=== PATIENT | male | born 1950 | race Asian ===

== ENCOUNTER 2024-04-10 10:51 | Emergency (ER) | payer OTHER, SELFPAY ==
[2024-04-10 10:58] VITALS: BP 135/91
--- NOTE | 2024-04-10 12:08 | ED.MUSCINJ ---
HPI-Injury
General
Chief Complaint: Musculo-Skeletal Complaint
Source: patient
Time Seen by Provider: 04/10/24 11:55
History of Present Illness-Injury
Initial Injury comments:
73yoM with a history of hypertension, hyperlipidemia, and CAD presenting for left great toe pain x 3 days. He dropped a heavy object on his foot 3 days ago and has been having pain and swelling since then. He was seen at urgent care 2 days ago and
had x-rays done. He was diagnosed with a toe fracture, placed in a leg boot, and advised to f/u with orthopedics. He has been unable to follow up with his PCP or orthopedics due to the holiday. He presents with uncontrolled pain despite using
Tylenol and ibuprofen. He also is worried that he may have an infection as he popped a blister on the toe and purulent fluid was expressed. He denies any fevers or chills. No history of diabetes.
Phy Exam
Physical Exam
Physical Exam:
Left great toe: Ecchymosis noted throughout digit with edema. Small area of open skin noted on the dorsal aspect of the toe in the area where he popped a blister. No drainage, fluctuance, or crepitus noted. No subungual hematoma. ROM intact. Cap
refill and sensation intact at distal aspect of digit. 2+ DP pulse.
General Physical Exam
General Presentation: well appearing and no apparent distress
General Skin: warm and dry
General Habitus: normal
General Mental: alert
Injury Course
Orders/Labs/Results
Orders:
Orders
04/10/24 12:08
Ice Pack-Treatment DIRECTED
Location: L great toe
Chandler Tape Left-Treatment ONCE
Comment: L great toe
Oxycodone [Roxicodone] 5 mg PO NOW STA
MDM/Problems Addressed
Differential Diagnosis Includes:
73yoM here with L great toe pain x 3 days. He was previously diagnosed with a toe fracture at urgent care. He is presenting for uncontrolled pain despite using OTC medications. No f/c. He is afebrile and hemodynamically stable. He is well appearing
in no distress. There is ecchymosis and swelling on exam. No signs of infection present. Digit is neurovascularly intact.
No indication for repeat imaging at this time. Will start on Keflex given report of purulent drainage. Script for oxycodone given for breakthrough pain. Advised ice, elevation, and chandler taping. Advised f/u with orthopedics or podiatry.
*Critical Care Note
Total Time (30-74mins, 75-104mins- exclusive of procedures): Not Applicable
ED Attending Note
-
Portions of this chart may have been created with voice recognition software.� Occasional wrong word or��sound alike� substitutions may have occurred due to the inherent limitations of voice recognition software.
Discharge Plan
Departure
Patient Disposition: Home (Routine Discharge)
Date of Disposition: 04/10/24
Time of Disposition: 12:10
Patient with high blood pressure during this ER visit?: No
Discharge Problem:
Closed fracture of left great toe
Instructions: Toe fracture
Prescriptions:
New
oxycodone 5 mg tablet
5 mg PO Q6H PRN (Reason: Pain) Qty: 12 0RF
cephalexin 500 mg capsule
500 mg PO QID Qty: 28 0RF
Referrals:
Kevin Cuevas MD [Family Provider] -
Jennie Moreno DPM [Active] -
Activity Restrictions/Additional Instructions:
Apply ice to affected area and elevate your leg. Take Tylenol and ibuprofen for pain. Take oxycodone only as needed for severe breakthrough pain.
Please call on Friday to schedule a follow-up appointment with orthopedics or podiatry.
Interventions
Interventions:
*Risk Screen - Suicide Last Done: 04/10/24 11:06
*General Assessment Last Done: 04/10/24 11:06
*Neglect/Abuse Screening Last Done: 04/10/24 11:06
ED- Fall Risk Assessment Last Done: 04/10/24 11:06
*ED COVID-19 Vaccine History Last Done: 04/10/24 11:06
*Nursing Disposition Last Done: 04/10/24 12:50
ED-Musculoskeletal Assessment Last Done: 04/10/24 11:06
Discharge Date and Time
Discharge Date/Time: 04/10/24 12:51
Print Language: CAMEROONIAN
[2024-04-10] MEDS: ROXICODONE 5 MG PO (12:22)
== END 2024-04-10 12:51 | disposition home or self-care (01) ==
LOC: EMR 10:51
PROVIDERS: EMERGENCY PHYSICIAN Student in an Organized Health Care Education/Training Program; FAMILY PHYSICIAN Internal Medicine
DX: S92.402A Displaced unspecified fracture of left great toe, initial encounter for closed fracture (principal); W20.8XXA Other cause of strike by thrown, projected or falling object, initial encounter; I10 Essential (primary) hypertension; E78.5 Hyperlipidemia, unspecified; I25.10 Atherosclerotic heart disease of native coronary artery without angina pectoris
CPT/HCPCS: 99283

== ENCOUNTER 2024-04-20 00:46 | Emergency (ER) | payer OTHER, SELFPAY ==
[2024-04-20 00:47] VITALS: BP 144/75
[2024-04-20 01:00] VITALS: BP 132/76
[2024-04-20 01:02] LABS: % Basophils 0.1 % (0-2); % Eosinophils 0.1 % (0-6); % Immature Granulocytes 0.6 % (0-0.5); % Lymphocytes 4.5 % (20.5-51.1); % Monocytes 6.7 % (1.7-9.3); Absolute Lymphocytes 0.3 10^3/uL (1.2-3.4); Absolute Monocytes 0.5 10^3/uL (0.1-0.6); Absolute Neutrophils 5.9 10^3/uL (1.4-6.5); Hematocrit 38.4 % (39.0-52.0); Hemoglobin 13.8 g/dL (13.0-18.0); Mean Corp Hgb Conc. 35.9 g/dL (33.0-37.0); Mean Corpuscular Hgb 30.7 pg (27.0-31.0); Mean Corpuscular Volume 85.3 fL (80.0-94.0); Mean Platelet Volume 8.9 fL (7.4-10.4); Nucleated Red Blood Cells % 0 % (-); Platelet Count 154 10^3/uL (130-400); Red Cell Dist. Width 11.9 % (11.5-14.5); White Blood Cell Count 6.7 10^3/uL (4.8-10.8)
[2024-04-20 01:16] LABS: ALT (SGPT) 28 U/L (0-50); AST (SGOT) 28 U/L (17-59); Albumin 4.3 g/dl (3.5-5.0); Alkaline Phosphatase 55 U/L (38-126); Blood Urea Nitrogen 21 mg/dl (9-20); Calcium 8.7 mg/dl (8.4-10.2); Carbon Dioxide 27 mmol/L (22-30); Chloride 100 mmol/L (98-107); Glucose 141 mg/dl (70-99); Lactic Acid 1.6 mmol/L (0.7-2.0); Potassium 3.8 mmol/L (3.5-5.1); Sodium 134 mmol/L (135-145); Total Bilirubin 0.6 mg/dl (0.2-1.3); Total Protein 6.3 g/dl (6.3-8.2); eGFR > 60.00
[2024-04-20 02:00] VITALS: BP 109/55
--- NOTE | 2024-04-20 02:39 | ED.GENMED ---
History of Present Illness
<Nelsy Vincent DO, Resident - Last Filed: 04/20/24 05:52>
General
Chief Complaint: Fever
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
Time Seen by Provider: 04/20/24 02:18
History of Present Illness
History of Present Illness:
Patient is a 73-year-old Telugu speaking male with past medical history of high cholesterol and CAD presenting to the ED with fevers, chills, diarrhea, lower abdominal pain/burning sensation. He recently had foot surgery for broken toes. His
primary care doctor noticed that he was using fluids from the surgical site and the wound was drained. Patient is currently on Keflex and started experiencing GI upset last week. It was exacerbated on Friday after eating questionably spoiled fish
for dinner. Symptoms have not improved since. He describes the sensation as a burning lower abdominal discomfort that causes diarrhea. Since this weekend he also started experiencing fatigue, weakness, chills, fever and worsening abdominal pain.
He took Tylenol yesterday at 2 PM, 6 PM, 11 PM and Advil as well at 11 PM.The pain did not resolve so he called 911 to come to the ED. He continues to state that he is having a burning discomfort in his lower abdomen.
Past History
<Nelsy Vincent DO, Resident - Last Filed: 04/20/24 05:52>
Past History
ED Past Medical History: CAD and Hypercholesterolemia
Social History
Tobacco: Non-smoker
Alcohol: None
Drug: None
Personal:
Review of Systems
<Nelsy Vincent DO, Resident - Last Filed: 04/20/24 05:52>
Review of Systems
Allergies reviewed?: Yes
Constitutional: Reports fever, fatigue and chills
EENT: Reports no symptoms
Respiratory: Reports no symptoms
Cardiac: Reports no symptoms
ABD/GI: Reports abdominal pain and diarrhea
: Reports no symptoms
Musculoskeletal: Reports other (foot pain)
Skin: Reports no symptoms
Neurological: Reports weakness
Psychiatric: Reports no symptoms
<Mikal Leiva DO - Last Filed: 04/20/24 05:49>
Review of Systems
All Other Systems: ROS reviewed and negative except as documented in HPI and ROS
Phy Exam
<Nelsy Vincent DO, Resident - Last Filed: 04/20/24 05:52>
General Physical Exam
General Presentation: well appearing and mild distress
General age: appears stated age
General Skin: warm, dry and other (sweaty)
General Habitus: normal
General Mental: alert
General Hydration: appears well hydrated
Cardiovascular Exam
Cardiovascular Exam: regular rate/rhythm, no edema, no gallop, no JVD, no murmur and normal peripheral pulses
Pulmonary Exam
Pulmonary Exam: lungs clear, no respiratory distress, no rales, chest non tender, no crackles, no rhonchi, no stridor, no wheezing and no cough
Gastrointestinal Exam
Gastrointestinal Exam: soft, no pulsatile mass, non distended and tender (RUQ)
Psychiatric Exam
Psychiatric Exam: normal mood/affect
Course
<Nelsy Vincent DO, Resident - Last Filed: 04/20/24 05:52>
Orders/Labs/Results
Orders:
Orders
04/20/24 00:55
Complete Blood Count/With Diff Urgent
Comprehensive Metabolic Panel Urgent
Lactic Acid Urgent
04/20/24 02:56
CR Foot - Left Min 3 Views Urgent
Reason For Exam: recent foot surgery, fluid draining
04/20/24 02:59
Urinalysis Urgent
04/20/24 03:25
Lipase Urgent
Procalcitonin Urgent
PCT Algorithmm Indication: Sepsis
04/20/24 03:56
CT Abd/pelvis W Iv Cont Urgent
Comment:
Reason For Exam: abdominal pain
04/20/24 05:21
COVID-19 Antigen Urgent
Source: Nasal Swab
Influenza A+B Rapid Molecular Urgent
ABDULAZIZ Source: Nasal Swab
Specimen Description:
Abnormal Lab Results
04/20/24
00:55
RBC 4.50 L 10^6/uL
(4.70-6.10)
Hct 38.4 L %
(39.0-52.0)
Absolute Lymphs (auto) 0.3 L 10^3/uL
(1.2-3.4)
Immature Gran % 0.6 H %
(0-0.5)
Neutrophils % 88.0 H %
(42.2-75.2)
Lymphocytes % 4.5 L %
(20.5-51.1)
Sodium 134 L mmol/L
(135-145)
BUN 21 H mg/dl
(9-20)
Glucose 141 H mg/dl
(70-99)
04/20/24 00:55
04/20/24 00:55
Vital Signs
Initial and Last Documented VS:
Initial Vital Signs
Temp Pulse Resp BP Pulse Ox
100.4 F H 96 17 144/75 92
04/20/24 00:47 04/20/24 00:47 04/20/24 00:47 04/20/24 00:47 04/20/24 00:47
Last Documented Vital Signs
Temp Pulse Resp BP Pulse Ox
98.7 F 77 20 109/55 95
04/20/24 03:32 04/20/24 02:15 04/20/24 02:15 04/20/24 02:00 04/20/24 02:15
<Mikal Leiva, DO - Last Filed: 04/20/24 05:49>
Orders/Labs/Results
Orders:
Orders
04/20/24 00:55
Complete Blood Count/With Diff Urgent
Comprehensive Metabolic Panel Urgent
Lactic Acid Urgent
04/20/24 02:56
CR Foot - Left Min 3 Views Urgent
Reason For Exam: recent foot surgery, fluid draining
04/20/24 02:59
Urinalysis Urgent
04/20/24 03:25
Lipase Urgent
Procalcitonin Urgent
PCT Algorithmm Indication: Sepsis
04/20/24 03:56
CT Abd/pelvis W Iv Cont Urgent
Comment:
Reason For Exam: abdominal pain
04/20/24 05:21
COVID-19 Antigen Urgent
Source: Nasal Swab
Influenza A+B Rapid Molecular Urgent
ABDULAZIZ Source: Nasal Swab
Specimen Description:
Abnormal Lab Results
04/20/24
00:55
RBC 4.50 L 10^6/uL
(4.70-6.10)
Hct 38.4 L %
(39.0-52.0)
Absolute Lymphs (auto) 0.3 L 10^3/uL
(1.2-3.4)
Immature Gran % 0.6 H %
(0-0.5)
Neutrophils % 88.0 H %
(42.2-75.2)
Lymphocytes % 4.5 L %
(20.5-51.1)
Sodium 134 L mmol/L
(135-145)
BUN 21 H mg/dl
(9-20)
Glucose 141 H mg/dl
(70-99)
04/20/24 00:55
04/20/24 00:55
Vital Signs
Initial and Last Documented VS:
Initial Vital Signs
Temp Pulse Resp BP Pulse Ox
100.4 F H 96 17 144/75 92
04/20/24 00:47 04/20/24 00:47 04/20/24 00:47 04/20/24 00:47 04/20/24 00:47
Last Documented Vital Signs
Temp Pulse Resp BP Pulse Ox
98.7 F 77 20 109/55 95
04/20/24 03:32 04/20/24 02:15 04/20/24 02:15 04/20/24 02:00 04/20/24 02:15
<Nelsy Vincent DO, Resident - Last Filed: 04/20/24 05:52>
MDM/Problems Addressed
Differential Diagnosis Includes:
Sepsis, foot infection, gastroenteritis
MDM/Problems Addressed:
Patient is a 73-year-old male presenting to the ED with fever, chills, pain, diarrhea and weakness for the last few days. CT abdomen pelvis and left foot x-ray ordered. CT AP and CR negative. Pt is no longer febrile. Lab work normal. Pt is stable,
resting comfortably and wants to return home. Pt will be discharged home with script for Gilbert.
Chronic conditions affecting care:
NA
Acute Exacerbation and/or Progression of Chronic Illness:
NA
<Nelsy Vincent DO, Resident - Last Filed: 04/20/24 05:52>
*Radiology
Radiology exam reviewed: preliminary read by ED provider (CT and XRay negative.)
*Pulse Oximetry
Patient hypoxic: no
*EKG
Interpreted by ED Provider?: NA
*Final Dressing Cutter Interpretation
Rate: normal
Interpretation: normal
Heart Rate: 77
Rhythm: sinus
*Critical Care Note
Total Time (30-74mins, 75-104mins- exclusive of procedures): Not Applicable
ED Attending Note
<Nelsy Vincent DO, Resident - Last Filed: 04/20/24 05:52>
-
Portions of this chart may have been created with voice recognition software.� Occasional wrong word or��sound alike� substitutions may have occurred due to the inherent limitations of voice recognition software.
Discharge Plan
Departure
Patient Disposition: Home (Routine Discharge)
Date of Disposition: 04/20/24
Time of Disposition: 05:50
Patient with high blood pressure during this ER visit?: No
Condition: Good
Discharge Problem:
Gastroenteritis
Instructions: Viral gastroenteritis in adults, Dealing with Diarrhea from the Drugs You Take
Prescriptions:
New
ondansetron 4 mg tablet,disintegrating
4 mg PO Q8H PRN (Reason: nausea and vomiting) Qty: 10 0RF
No Action
oxycodone 5 mg tablet
5 mg PO Q6H PRN (Reason: Pain) Qty: 12 0RF
cephalexin 500 mg capsule
500 mg PO QID Qty: 28 0RF
acetaminophen [Tylenol Ex Str Rapid Release] 500 mg Tablet
1,000 mg PO Q6H PRN (Reason: pain)
Referrals:
Kevin Cuevas MD [Family Provider] - Call in 1-3 days for appt
Interventions
Interventions:
*Risk Screen - Suicide Last Done: 04/20/24 00:47
ED- Neurological Assessment Last Done: 04/20/24 01:00
ED-Skin Assessment Last Done: 04/20/24 01:00
Discharge Date and Time
Print Language: SETSWANA
[2024-04-20 04:00] VITALS: BP 116/69
[2024-04-20 04:01] LABS: Lipase 64 U/L (23-300)
[2024-04-20 04:16] LABS: Procalcitonin 0.08 ng/ml (0.0-0.25)
[2024-04-20 05:09] VITALS: BP 106/72
[2024-04-20 05:59] LABS: COVID-19 Antigen Negative (Negative)
[2024-04-20 06:00] VITALS: BP 94/56
== END 2024-04-20 06:05 | disposition home or self-care (01) ==
LOC: EMR 00:46
PROVIDERS: EMERGENCY PHYSICIAN Student in an Organized Health Care Education/Training Program; FAMILY PHYSICIAN Internal Medicine
DX: R19.7 Diarrhea, unspecified (principal); K30 Functional dyspepsia; R10.30 Lower abdominal pain, unspecified; R68.83 Chills (without fever); R53.1 Weakness; R53.83 Other fatigue; Z11.52 Encounter for screening for COVID-19; K52.9 Noninfective gastroenteritis and colitis, unspecified; E78.00 Pure hypercholesterolemia, unspecified; I25.10 Atherosclerotic heart disease of native coronary artery without angina pectoris; Z98.890 Other specified postprocedural states
CPT/HCPCS: 99285; 73630; 74177; 80053; 83605; 83690; 84145; 85025; 87502; 87811; Q9967

== ENCOUNTER 2024-05-09 20:17 | Emergency (ER) | payer OTHER, SELFPAY ==
[2024-05-09 20:19] VITALS: BP 138/92
--- NOTE | 2024-05-09 20:36 | ED.GENMED ---
History of Present Illness
General
Chief Complaint: Insect Sting
Source: patient
Exam Limitations: none
Time Seen by Provider: 05/09/24 20:33
Nursing documentation reviewed up to this point in time: agreed with
History of Present Illness
History of Present Illness:
73-year-old male past medical history hypertension hyperlipidemia presenting to the emergency department today with concerns of discomfort to the left ear after being stung by a bee prior to arrival. No trouble swallowing no trouble breathing no
lightheadedness no abdominal pain no nausea vomiting no significant diffuse hives.
Past History
Past History
ED Past Medical History: CAD and Hypercholesterolemia
Social History
Tobacco: Non-smoker
Alcohol: None
Drug: None
Personal:
Review of Systems
Review of Systems
Allergies reviewed?: Yes
All Other Systems: ROS reviewed and negative except as documented in HPI and ROS
Phy Exam
Physical Exam
Physical Exam:
GENERAL: Alert , in no apparent distress
EYE: pupils equal and reactive
NECK: Supple, no significant adenopathy.
ENT: No redness or warmth o/p clr, mmm.
CARDIAC: Regular rate and rhythm .
LUNGS: Clear breath sounds bilaterally, no acute respiratory distress, no wheezes/rales/rhonchi
ABDOMEN: Soft, without focal tenderness, no r/g, no cvat
NEUROLOGICAL: Alert and oriented, no focal neuro deficits
SKIN: Warm and dry, skin intact.
MUSCULOSKELETAL: No edema, well perfused.
PSYCH: Normal and appropriate interaction.
Very slight inflammation to the left outer ear
Course
Orders/Labs/Results
Orders:
Orders
05/09/24 20:36
Ibuprofen [Motrin] 600 mg PO NOW STA
Vital Signs
Initial and Last Documented VS:
Initial Vital Signs
Temp Pulse Resp BP Pulse Ox
98.4 F 66 22 138/92 96
05/09/24 20:19 05/09/24 20:19 05/09/24 20:19 05/09/24 20:19 05/09/24 20:19
Last Documented Vital Signs
Temp Pulse Resp BP Pulse Ox
98.4 F 66 22 138/92 96
05/09/24 20:19 05/09/24 20:19 05/09/24 20:19 05/09/24 20:19 05/09/24 20:25
MDM/Problems Addressed
MDM/Problems Addressed:
73-year-old male presenting to the emergency department today with concerns of a bee sting to the left ear no signs of anaphylaxis no signs of emergent pathology stable for discharge
*Critical Care Note
Total Time (30-74mins, 75-104mins- exclusive of procedures): Not Applicable
ED Attending Note
-
Portions of this chart may have been created with voice recognition software.� Occasional wrong word or��sound alike� substitutions may have occurred due to the inherent limitations of voice recognition software.
Discharge Plan
Departure
Patient Disposition: Home (Routine Discharge)
Date of Disposition: 05/09/24
Time of Disposition: 20:42
Patient with high blood pressure during this ER visit?: No
Condition: Good
Covid-19: Not Applicable
Discharge Problem:
Bee sting
Instructions: Insect Bites and Stings (DC)
Prescriptions:
No Action
oxycodone 5 mg tablet
5 mg PO Q6H PRN (Reason: Pain) Qty: 12 0RF
cephalexin 500 mg capsule
500 mg PO QID Qty: 28 0RF
acetaminophen [Tylenol Ex Str Rapid Release] 500 mg Tablet
1,000 mg PO Q6H PRN (Reason: pain)
ondansetron 4 mg tablet,disintegrating
4 mg PO Q8H PRN (Reason: nausea and vomiting) Qty: 10 0RF
Referrals:
UNKNOWN - PT DOES,NOT KNOW [Family Provider] -
Activity Restrictions/Additional Instructions:
You came to the emergency department today with concerns of a bee sting. Please apply ice to the area you can also take Motrin for discomfort. Return to the emergency department for any worsening, new or concerning symptoms.
Interventions
Interventions:
*Risk Screen - Suicide Last Done: 05/09/24 20:25
*General Assessment Last Done: 05/09/24 20:25
*Neglect/Abuse Screening Last Done: 05/09/24 20:25
ED- Fall Risk Assessment Last Done: 05/09/24 20:25
*ED COVID-19 Vaccine History Last Done: 05/09/24 20:25
ED-Skin Assessment Last Done: 05/09/24 20:25
ED- Pulmonary Assessment Last Done: 05/09/24 20:25
Discharge Date and Time
Print Language: MAORI
[2024-05-09] MEDS: MOTRIN 600 MG PO (20:46)
== END 2024-05-09 20:50 | disposition home or self-care (01) ==
LOC: EMR 20:17
PROVIDERS: EMERGENCY PHYSICIAN Emergency Medicine
DX: T63.441A Toxic effect of venom of bees, accidental (unintentional), initial encounter (principal); I10 Essential (primary) hypertension; E78.00 Pure hypercholesterolemia, unspecified; I25.10 Atherosclerotic heart disease of native coronary artery without angina pectoris
CPT/HCPCS: 99282